=== PATIENT | male | born 1995 | race African-American/Black ===

== ENCOUNTER 2020-02-11 12:46 | Outpatient (CLI) | payer OTHER | END 2020-02-11 12:50 | disposition home or self-care (01) | LOC: LAB 12:46 | DX: Z20.828 Contact with and (suspected) exposure to other viral communicable diseases (principal); Z03.818 Encounter for observation for suspected exposure to other biological agents ruled out ==

== ENCOUNTER → 2020-03-17 | Outpatient (CLI) | payer OTHER | END | disposition home or self-care (01) | LOC: PPH VACUNA 09:00 | DX: Z23 Encounter for immunization (principal) ==

== ENCOUNTER 2022-06-09 16:03 | Emergency (ER) | payer OTHER ==
[~2022-06-09] VITALS: Ht 188 cm; Wt 120.2 kg
== END 2022-06-09 20:17 | disposition home or self-care (01) ==
LOC: ER 16:03
DX: R42 Dizziness and giddiness (principal); Z88.6 Allergy status to analgesic agent; Z88.8 Allergy status to other drugs, medicaments and biological substances

== ENCOUNTER 2023-07-19 06:43 | Outpatient (CLI) | payer OTHER ==
[~2023-07-19 06:43] MED LIST: CIPRO500 MG PO; HYDROCHLOROTH12.5 MG; INTESTINEX680 M1 PO; PEPCID AC20 MG PO
== END 2023-07-19 06:52 | disposition home or self-care (01) ==
LOC: SONOGRAMA 06:43
DX: N52.9 Male erectile dysfunction, unspecified (principal)